=== PATIENT | female | born 1960 | race Caucasian/White ===

== ENCOUNTER → 2024-04-05 06:21 | Day surgery (SDC) | payer OTHER, SELFPAY | LOC: GI 06:21 | PROVIDERS: ATTENDING PHYSICIAN Internal Medicine Gastroenterology | DX: Z12.11 Encounter for screening for malignant neoplasm of colon (principal); K57.30 Diverticulosis of large intestine without perforation or abscess without bleeding; K64.8 Other hemorrhoids | CPT/HCPCS: G0121 ==

== ENCOUNTER 2024-08-31 14:55 | Emergency (ER) | payer OTHER, SELFPAY ==
[2024-08-31 15:16] VITALS: BP 161/99
[2024-08-31 15:38] LABS: % Basophils 0.1 % (0-2); % Eosinophils 3.6 % (0-6); % Immature Granulocytes 0.6 % (0-0.5); % Lymphocytes 16.1 % (20.5-51.1); % Monocytes 9.1 % (1.7-9.3); % Neutrophils 70.5 % (42.2-75.2); Absolute Eosinophils 0.3 10^3/uL (0-0.7); Absolute Lymphocytes 1.2 10^3/uL (1.2-3.4); Absolute Monocytes 0.7 10^3/uL (0.1-0.6); Absolute Neutrophils 5.1 10^3/uL (1.4-6.5); Hematocrit 37.6 % (37.0-47.0); Hemoglobin 12.7 g/dL (12.0-16.0); Mean Corp Hgb Conc. 33.8 g/dL (33.0-37.0); Mean Corpuscular Hgb 33.6 pg (27.0-31.0); Mean Corpuscular Volume 99.5 fL (81.0-99.0); Mean Platelet Volume 9.9 fL (7.4-10.4); Nucleated Red Blood Cells % 0 %; Platelet Count 283 10^3/uL (130-400); Red Blood Cell Count 3.78 10^6/uL (4.20-5.40); White Blood Cell Count 7.2 10^3/uL (4.8-10.8)
[2024-08-31 15:59] LABS: ALT (SGPT) 18 U/L (0-35); AST (SGOT) 28 U/L (14-36); Albumin 4.4 g/dl (3.5-5.0); Alkaline Phosphatase 68 U/L (38-126); Blood Urea Nitrogen 13 mg/dl (7-17); Calcium 9.3 mg/dl (8.4-10.2); Carbon Dioxide 25 mmol/L (22-30); Chloride 108 mmol/L (98-107); Glucose 106 mg/dl (70-99); Potassium 4.4 mmol/L (3.5-5.1); Sodium 140 mmol/L (135-145); Total Bilirubin 0.7 mg/dl (0.2-1.3); eGFR > 60.00
[2024-08-31 16:00] LABS: Lipase 210 U/L (23-300)
[2024-08-31 16:01] LABS: Urine Albumin Negative (Neg - Trace); Urine Bilirubin Negative (Negative); Urine Character Clear (Clear); Urine Color Yellow; Urine Glucose Negative (Negative); Urine Ketone 1+ (Negative); Urine Leukocyte 1+ (Negative); Urine Nitrite Negative (Negative); Urine Occult Blood 1+ (Negative); Urine Urobilinogen 1+ (Neg - 1+); Urine pH 6.5 (5.0-9.0)
[2024-08-31 16:09] LABS: Urine Squamous Cell >30 /LPF (Few)
[2024-08-31 16:10] LABS: Urine Bacteria Few (Negative)
--- NOTE | 2024-08-31 16:44 | ED.GENMED ---
History of Present Illness
General
Chief Complaint: Abdominal Pain
Source: patient
Exam Limitations: none
Time Seen by Provider: 08/31/24 16:30
History of Present Illness
History of Present Illness:
64yoF with a history of rheumatoid arthritis on Rinvoq and methotrexate and GERD presenting for evaluation of abdominal pain. She reports cramping pain in her LLQ with bloating for the past 3 days. Pain has been constant since it began and is
worse with movement and palpation. Pain is non-radiating. No prior history of similar pains in the past. She has also been constipated. She didn't have a bowel movement for 4 days up until this morning which is unusual for her. She was seen by
her PCP today and was sent to the ED for evaluation. She denies any fevers, chills, vomiting, dysuria, back pain, hematochezia. Previous abdominal surgeries include an appendectomy in her 20s. Colonoscopy in March 2024 showed 'Multiple
small-mouthed diverticula were found in the entire colon.'
Past History
Past History
ED Past Medical History: Other (Rheumatoid arthritis)
ED Past Surgical History: None and Other
Social History
Tobacco: Non-smoker
Alcohol: Occasional
Personal:
Living: with family
Employment: Other
Family History
Family History: Negative Diabetes, Hypertension, Early CAD, Asthma or Cancer
Phy Exam
General Physical Exam
General Presentation: well appearing and no apparent distress
General age: appears stated age
General Skin: warm and dry
General Habitus: normal
General Mental: alert
ENT Exam
ENT Exam: normocephalic
Cardiovascular Exam
Cardiovascular Exam: regular rate/rhythm and no murmur
Pulmonary Exam
Pulmonary Exam: lungs clear, no respiratory distress, no rales, no crackles, no rhonchi and no wheezing
Gastrointestinal Exam
Gastrointestinal Exam: soft, non distended and other (+Tenderness in the LLQ with voluntary guarding. No rebound. Abdomen soft, non-distended. )
Neurological Exam
Neurological Exam: alert
[place] Coma Scale
Eye Opening: Spontaneous
Verbal Response: Oriented
Motor Response: Obeys Commands
GCS Total Score: 15
Skin Exam
Skin Exam: normal color and warm/dry
Psychiatric Exam
Psychiatric Exam: normal mood/affect
Course
Orders/Labs/Results
Orders:
Orders
08/31/24 15:29
Complete Blood Count/With Diff Urgent
Comprehensive Metabolic Panel Urgent
Lipase Urgent
08/31/24 15:30
Urinalysis Reflex To Culture Urgent
Date Specimen was Collected: 08/31/24
Time Specimen was Collected: 15:19
Urine Microscopic Reflex Cult Urgent
Urine Culture Urgent
FELICIANO Source: U
Specimen Description:
Date Specimen was Collected: 08/31/24
Time Specimen was Collected: 15:19
08/31/24 16:42
CT Abd/pel W Iv And Oral Contr Urgent
Comment:
Reason For Exam: LLQ pain
0.9% Sodium Chloride 1000 ml [Nss] 1,000 ml IV BOLUS
Iohexol [Omnipaque] See Protocol PO NOW STA
08/31/24 20:55
Amoxicillin 875 mg/Clav 125 mg [Augmentin 875 mg/125 mg] 1 tablet PO NOW STA
Abnormal Lab Results
08/31/24 08/31/24
15:29 15:30
RBC 3.78 L 10^6/uL
(4.20-5.40)
MCV 99.5 H fL
(81.0-99.0)
MCH 33.6 H pg
(27.0-31.0)
Absolute Monos (auto) 0.7 H 10^3/uL
(0.1-0.6)
Immature Gran % 0.6 H %
(0-0.5)
Lymphocytes % 16.1 L %
(20.5-51.1)
Chloride 108 H mmol/L
(98-107)
Glucose 106 H mg/dl
(70-99)
Urine Ketones 1+ A
(Negative)
Ur Occult Blood Reflex 1+ A
(Negative)
Leukocyte Esterase Rfl 1+ A
(Negative)
Urine RBC 3-6 A /HPF
(0-2)
Urine Bacteria (Reflex) Few A
(Negative)
08/31/24 15:29
08/31/24 15:29
Vital Signs
Initial and Last Documented VS:
Initial Vital Signs
Temp Pulse Resp BP Pulse Ox
97.8 F 85 16 161/99 98
08/31/24 15:16 08/31/24 15:16 08/31/24 15:16 08/31/24 15:16 08/31/24 15:16
Last Documented Vital Signs
Temp Pulse Resp BP Pulse Ox
97.8 F 76 16 156/94 98
08/31/24 15:16 08/31/24 21:09 08/31/24 18:00 08/31/24 18:00 08/31/24 21:09
MDM/Problems Addressed
Differential Diagnosis Includes:
64yoF here with LLQ pain and bloating x 3 days. Associated with constipation. No f/c. Colonoscopy last year showed diverticulosis. She is hypertensive with otherwise normal vitals. She is well appearing in no distress. There is LLQ tenderness on
exam with voluntary guarding. Differential diagnosis includes but is not limited to: diverticulitis, intra-abdominal abscess, colitis, constipation, stercoral colitis, kidney stone
Initial ED plan: Labs obtained in triage. White count, renal function, LFTs normal. UA with 1+ blood without signs of infection. Will obtain CT abdomen with IV/PO contrast. IV fluid bolus. She declines analgesics.
*Critical Care Note
Total Time (30-74mins, 75-104mins- exclusive of procedures): Not Applicable
Update Note
Update Note:
Imaging shows evidence of acute uncomplicated diverticulitis. No evidence of perforation or abscess. Inflammatory malignancy cannot be entirely excluded and radiology is recommending repeat CT scan to confirm resolution of diverticulitis. Patient
did have a colonoscopy about 6 months ago which did not show any polyps or signs of malignancy. She was provided with a copy of her radiology report. Patient was started on a course of Augmentin. Advised clear liquid diet until pain improves.
She was instructed to follow-up with gastroenterology. Strict ED return precautions discussed including fevers, chills, and severe pain. Patient in agreement with plan and was discharged in stable condition.
ED Attending Note
-
Portions of this chart may have been created with voice recognition software.� Occasional wrong word or��sound alike� substitutions may have occurred due to the inherent limitations of voice recognition software.
Discharge Plan
Departure
Patient Disposition: Home (Routine Discharge)
Date of Disposition: 08/31/24
Time of Disposition: 20:55
Patient with high blood pressure during this ER visit?: Yes
Discharge Problem:
Acute diverticulitis
Instructions: Clear Liquid Diet, Diverticulitis - Discharge instructions
Prescriptions:
New
amoxicillin-pot clavulanate 875-125 mg tablet
1 tab PO BID Qty: 19 0RF
No Action
abatacept (with maltose) [Orencia (with maltose)] 250 MG/10 ML recon soln
250 mg IV MONTHLY
cyanocobalamin (vitamin B-12) 100 MCG tablet
100 mcg PO DAILY
ergocalciferol (vitamin D2) 400 UNIT tablet
800 unit PO DAILY
meloxicam 7.5 MG tablet
7.5 mg PO BID
methotrexate sodium 2.5 MG tablet
15 mg PO WEEKLY
folic acid 1 MG tablet
1 mg PO DAILY
Patient Comments:
Does not take it when methotrexate taken
oxycodone-acetaminophen 5 MG/325 MG tablet
1 tab PO Q4HPRN PRN (Reason: pain) Qty: 12 0RF
Referrals:
Telma Jean-Baptiste MD [Family Provider] -
Activity Restrictions/Additional Instructions:
Take antibiotics as prescribed. Eat a clear liquid diet until pain improves.
Please follow-up with gastroenterology to discuss need for repeat CT scan after infection resolves. You should also discuss with your issuing operator regarding your Rinvoq.
Return to the ER with any new or worsening symptoms including severe pain, fevers, chills.
Interventions
Interventions:
*Risk Screen - Suicide Last Done: 08/31/24 15:16
*General Assessment Last Done: 08/31/24 17:31
*Neglect/Abuse Screening Last Done: 08/31/24 15:16
*ED- Fall Risk Assessment Last Done: 08/31/24 17:31
*ED COVID-19 Vaccine History Last Done: 08/31/24 17:31
*Nursing Disposition Last Done: 08/31/24 21:09
NE-Pdhtqb-Qqypcznydn Assessment Last Done: 08/31/24 17:31
Discharge Date and Time
Discharge Date/Time: 08/31/24 21:10
Print Language: URUGUAYAN
[2024-08-31] MEDS: OMNIPAQUE 50 ML PO (17:14)
[2024-08-31] MEDS: NSS 1000 IV (17:15)
[2024-08-31 18:00] VITALS: BP 156/94
[2024-08-31] MEDS: AUGMENTIN 875 MG/125 MG 1 TABLET PO (21:04)
== END 2024-08-31 21:10 | disposition home or self-care (01) ==
LOC: EMR 14:55
PROVIDERS: EMERGENCY PHYSICIAN Emergency Medicine; FAMILY PHYSICIAN Family Medicine
DX: K57.30 Diverticulosis of large intestine without perforation or abscess without bleeding (principal); M06.9 Rheumatoid arthritis, unspecified; K21.9 Gastro-esophageal reflux disease without esophagitis; Z79.899 Other long term (current) drug therapy
CPT/HCPCS: 99284; 96360; 74177; 80053; 81003; 81015; 83690; 85025; 87086; Q9967

== ENCOUNTER 2024-09-04 14:49 | Inpatient (IN) | payer OTHER, SELFPAY ==
[2024-09-04] VITALS (13 sets, daily range): BP systolic 102–137; BP diastolic 66–89; BMI 26.9
--- NOTE | 2024-09-04 07:37 | ED.GENMED ---
History of Present Illness
General
Chief Complaint: Fainting/Passed Out
Source: patient, records and spouse
Exam Limitations: none
Time Seen by Provider: 09/04/24 07:11
Nursing documentation reviewed up to this point in time: agreed with
History of Present Illness
History of Present Illness:
64-year-old male presents emerged department after waking up with a fever of 100.5 today. She then took a shower and felt lightheaded, passed out and fell onto her face. She is currently on Augmentin for diverticulitis that was diagnosed on
08/31/2024. She is also having worse abdominal pain.
Past History
Past History
ED Past Medical History: Other (Rheumatoid arthritis) and Other (Diverticulitis)
ED Past Surgical History: None and Other
Social History
Tobacco: Non-smoker
Alcohol: Occasional
Personal:
Living: with family
Employment: Other
Family History
Family History: Negative Diabetes, Hypertension, Early CAD, Asthma or Cancer
Review of Systems
Review of Systems
Allergies reviewed?: Yes
All Other Systems: Not applicable
EENT: Reports no symptoms
Respiratory: Reports no symptoms
Cardiac: Reports syncope
ABD/GI: Reports abdominal pain, nausea and vomiting
: Reports no symptoms
Musculoskeletal: Reports no symptoms
Skin: Reports no symptoms
Neurological: Reports no symptoms
Endocrine: Reports no symptoms
Hematologic/Lymphatic: Reports no symptoms
Psychiatric: Reports no symptoms
Phy Exam
Physical Exam
Physical Exam:
Physical Exam
General: no apparent distress, not acutely ill
Neck: supple. no meningeal signs. normal posterior pharynx, tenderness palpation at C2-C3
Heart: s1/s2 regular rate and rhythm, no murmur. equal radial
pulses.
HEENT: Pupils equal round reactive to light, EOMI, anterior nasal laceration, nasal swelling
Lungs: no acute respiratory distress. clear bilaterally
Abdomen: normal bowel sounds. Left-sided tenderness, no rebound or guarding. no CVAT
Neuro: alert and oriented. no focal neurological deficits cranial nerves II through XII intact
Skin: no rash
Psychiatric: well kept. interactive and cooperative
Extremities: no edema. no calf tenderness. negative homans. good distal pulses
Course
Orders/Labs/Results
Orders:
Orders
09/04/24 07:04
ECG [Electrocardiogram (*1)] Urgent
Reason for Study: Syncope
EKG- Treatment ONCE
09/04/24 07:33
CT Cervical Spine W/o Iv Contr Urgent
Comment:
Reason For Exam: fall, pain at c2-4
CT Facial Bones W/o Iv Contras Urgent
Comment:
Reason For Exam: fall, hit nose and jaw
CT Head W/o Iv Contrast Urgent
Comment:
Reason For Exam: fall, hit head
Iohexol [Omnipaque] See Protocol PO NOW STA
09/04/24 07:35
Complete Blood Count/With Diff Urgent
Comprehensive Metabolic Panel Urgent
Lactic Acid Q4H
Comment: CANCEL 2nd LACTIC ACID IF 1st LACTIC ACID IS LESS THAN 2
Blood Culture Q30M
FELICIANO Source: Blood/Venous
Specimen Description:
09/04/24 07:36
CT Abd/pel W Iv And Oral Contr Urgent
Comment:
Reason For Exam: LLQ abd pain, worse, now febrile
09/04/24 07:46
Morphine Sulfate 4 mg IV NOW STA
Ondansetron Injectable [Zofran] 4 mg IV NOW STA
09/04/24 08:05
Blood Culture Q30M
FELICIANO Source: Blood/Venous
Specimen Description:
09/04/24 08:37
Acetaminophen [Tylenol] 1,000 mg .ROUTE .STK-MED ONE
09/04/24 08:38
Acetaminophen [Tylenol] 1,000 mg PO NOW STA
09/04/24 11:29
Piperacillin/Tazo 4.5 Gram [Zosyn] 4.5 gram in 100 ml IV NOW
Abnormal Lab Results
09/04/24
07:35
WBC 12.9 H 10^3/uL
(4.8-10.8)
MCH 33.6 H pg
(27.0-31.0)
Abs Immat Gran (auto) 0.1 H 10^3/uL
(0-0.05)
Absolute Neuts (auto) 10.3 H 10^3/uL
(1.4-6.5)
Absolute Lymphs (auto) 1.1 L 10^3/uL
(1.2-3.4)
Absolute Monos (auto) 1.2 H 10^3/uL
(0.1-0.6)
Immature Gran % 0.6 H %
(0-0.5)
Neutrophils % 80.2 H %
(42.2-75.2)
Lymphocytes % 8.5 L %
(20.5-51.1)
Monocytes % 9.6 H %
(1.7-9.3)
Glucose 143 H mg/dl
(70-99)
09/04/24 07:35
09/04/24 07:35
Vital Signs
Initial and Last Documented VS:
Initial Vital Signs
Temp Pulse Resp BP Pulse Ox
97.7 F 95 16 137/89 100
09/04/24 06:59 09/04/24 06:59 09/04/24 06:59 09/04/24 06:59 09/04/24 06:59
Last Documented Vital Signs
Temp Pulse Resp BP Pulse Ox
97.7 F 81 18 102/66 96
09/04/24 06:59 09/04/24 13:30 09/04/24 13:30 09/04/24 13:00 09/04/24 13:30
Procedures
Laceration Closure
Middle Nose:
Status of Wound: clean
Size of Wound in cm: 0.5
Description of Wound Edges: sharp
Preparation: cleaned with saline
Type of Closure: Dermabond-skin glue
MDM/Problems Addressed
Differential Diagnosis Includes:
Intracranial hemorrhage, cervical spine fracture, nasal fracture, perforated diverticulitis
MDM/Problems Addressed:
64-year-old female with diverticulitis, failing outpatient antibiotics. Nasal fracture, incidental tongue mass and nasal laceration. Laceration repaired. Admit to hospitalist. Patient will follow-up with ENT for fracture and tongue mass.
*Radiology
Radiology exam reviewed: radiology read reviewed (Abdomen pelvis CT diverticulitis, no perforation. CT head no acute findings CT cervical spine no cervical spine fracture, tongue mass, nasal bone fracture)
*Pulse Oximetry
Patient hypoxic: no
*EKG
Interpreted by ED Provider?: Yes
EKG Intrepretation Date: 09/04/24
EKG Intrepretation Time: 07:42
Interpretation: abnormal
Comparison EKG: changes noted
Heart Rate: 79
Rate: normal
Rhythm: sinus and PVC's
[place]: normal axis
Interval: normal interval
QRS Pattern: normal QRS
Ischemia: no ischemia
*Corporate Real Estate Manager Interpretation
Rate: normal
Interpretation: normal
Heart Rate: 80
Rhythm: sinus
*Critical Care Note
Total Time (30-74mins, 75-104mins- exclusive of procedures): Not Applicable
Data Reviewed
Review of Other/Old Records Reveals: Radiology Studies (No perforation on prior CT abdomen pelvis)
Source: records
Patient Management
Social determinants of health affecting care: Living situation and Strong social support
Discussion with other providers: Hospitalist
Escalation/DeEscalation of care consider admission/obs:
Admission indicated
ED Attending Note
-
Portions of this chart may have been created with voice recognition software.� Occasional wrong word or��sound alike� substitutions may have occurred due to the inherent limitations of voice recognition software.
Discharge Plan
Departure
Patient Disposition: Admit
Date of Disposition: 09/04/24
Time of Disposition: 11:34
Admit to: Telemetry
Presentation/result/management discussed w/ accepting MD/DO: Hospitalist
Patient with high blood pressure during this ER visit?: No
Condition: Fair
Discharge Problem:
Diverticulitis, Syncope, Fracture of nasal bone, Tongue mass, Laceration of nose
Prescriptions:
No Action
meloxicam 7.5 MG tablet
7.5 mg PO DAILYPRN PRN (Reason: MILD PAIN)
methotrexate sodium 2.5 MG tablet
15 mg PO FR
folic acid 1 MG tablet
4 mg PO SUMOTUWETHSA
amoxicillin-pot clavulanate 875-125 mg tablet
1 tab PO BID Qty: 19 0RF
cyanocobalamin (vitamin B-12) 1,000 mcg Tablet
1,000 mcg PO DAILY
cholecalciferol (vitamin D3) [Vitamin D3] 25 mcg (1,000 unit) Tablet
75 mcg PO DAILY
omeprazole 20 mg Tablet,Delayed Release (Dr/Ec)
20 mg PO DAILY
PreserVision AREDS 2,148 mcg-113 mg-45 mg-17.4mg Tablet
1 tab PO BID
Rinvoq 15 mg Tablet Extended Release 24 Hr
15 mg PO DAILY
Referrals:
Telma Jean-Baptiste MD [Family Provider] -
Interventions
Interventions:
*Risk Screen - Suicide Last Done: 09/04/24 06:59
*Neglect/Abuse Screening Last Done: 09/04/24 06:59
*ED- Fall Risk Assessment Last Done: 09/04/24 11:48
ED- Cardiac Assessment Last Done: 09/04/24 11:52
ED- Neurological Assessment Last Done: 09/04/24 11:52
Discharge Date and Time
Print Language: IRISH
[2024-09-04 07:50] LABS: % Basophils 0.2 % (0-2); % Eosinophils 0.9 % (0-6); % Immature Granulocytes 0.6 % (0-0.5); % Lymphocytes 8.5 % (20.5-51.1); % Monocytes 9.6 % (1.7-9.3); % Neutrophils 80.2 % (42.2-75.2); Absolute Eosinophils 0.1 10^3/uL (0-0.7); Absolute Immature Granulocytes 0.1 10^3/uL (0-0.05); Absolute Lymphocytes 1.1 10^3/uL (1.2-3.4); Absolute Monocytes 1.2 10^3/uL (0.1-0.6); Absolute Neutrophils 10.3 10^3/uL (1.4-6.5); Hematocrit 41.1 % (37.0-47.0); Hemoglobin 14.1 g/dL (12.0-16.0); Mean Corp Hgb Conc. 34.3 g/dL (33.0-37.0); Mean Corpuscular Hgb 33.6 pg (27.0-31.0); Mean Corpuscular Volume 97.9 fL (81.0-99.0); Mean Platelet Volume 9.4 fL (7.4-10.4); Nucleated Red Blood Cells % 0 %; Platelet Count 321 10^3/uL (130-400); Red Cell Dist. Width 13.3 % (11.5-14.5); White Blood Cell Count 12.9 10^3/uL (4.8-10.8)
[2024-09-04] MEDS: ZOFRAN 4 MG IV (08:02)
[2024-09-04 08:03] LABS: ALT (SGPT) 16 U/L (0-35); AST (SGOT) 18 U/L (14-36); Albumin 4.5 g/dl (3.5-5.0); Alkaline Phosphatase 69 U/L (38-126); Blood Urea Nitrogen 7 mg/dl (7-17); Calcium 9.6 mg/dl (8.4-10.2); Carbon Dioxide 23 mmol/L (22-30); Chloride 106 mmol/L (98-107); Glucose 143 mg/dl (70-99); Potassium 3.6 mmol/L (3.5-5.1); Sodium 142 mmol/L (135-145); Total Bilirubin 1.1 mg/dl (0.2-1.3); Total Protein 7.1 g/dl (6.3-8.2); eGFR > 60.00
[2024-09-04 08:11] LABS: Lactic Acid 1.7 mmol/L (0.7-2.0)
[2024-09-04] MEDS: OMNIPAQUE 50 ML PO (08:30)
[2024-09-04] MEDS: TYLENOL 1000 MG PO (08:38)
[2024-09-04] MEDS: ZOSYN 100 IV (11:39)
[2024-09-04] MEDS: TYLENOL 650 MG PO ×2 (14:25→20:25)
--- NOTE | 2024-09-04 15:09 | HPS.HSE ---
Family Physician
-
Family Physician: Telma Jean-Baptiste
Chief Complaint
-
Syncope, Diverticulitis
History of Present Illness
64-year-old female with seronegative RA (immunocompromise secondary to use of MTX and Rinvoq), diverticulosis, vitamin D deficiency, vitamin B12 deficiency, H/O parathyroidectomy, H/O retina tear that presented to the ED today after having a
syncopal episode. Patient states she woke up today with a fever of 100.5 �F. Went to take a shower when she became lightheaded, lost consciousness and fell onto her face. States she was recently diagnosed with diverticulitis as an outpatient on
08/31/24 and treated with a course of Augmentin. States abdomen pain has been worsening over that time. Upon arrival to the ED, AFVSS. Labs with WBC 12.9 and neutrophilic predominance but otherwise fairly unremarkable. CT A/P with IV and oral
contrast demonstrated acute sigmoid diverticulitis without significant change compared to CT on, no signs of abscesses or perforation. CT cervical spine without contrast showed asymmetry within the left oropharynx at the base of the tongue
concerning for mucosal mass. CT facial bones without IV contrast showed minimally displaced bilateral nasal bone fracture. Head CT did not show any signs of ICH or skull fractures. In the ED was started on IV Zosyn, Zofran, and Tylenol.
Medical History
Past Medical History
Past Medical History: Reports Other
Additional Past Medical History:
Seronegative RA
Immunosuppressed 2/2 Rinvoq and MTX
Diverticulosis
B12 deficiency
Vitamin D deficiency
Past Surgical History: Reports Other
Additional Past Surgical History:
H/O parathyroidectomy
H/O Retinal repair
Social History
Tobacco: Non-smoker
Alcohol: None
Drug: None
Family History
Family History: Not pertinent
Allergies / Home Medications
Allergies reflects when Allergies were last updated in [facility].
Home Medications with original date entered in [facility]
Allergy/Medication List:
Allergies
Allergy/AdvReac Type Severity Reaction Status Date / Time
cefcil Allergy Hives Uncoded 09/04/24 07:02
Home Medications
folic acid 1 mg tablet 4 mg PO SUMOTUWETHSA 04/09/15
meloxicam 7.5 mg tablet 7.5 mg PO DAILYPRN PRN MILD PAIN 04/09/15
methotrexate sodium 2.5 mg tablet 15 mg PO FR 04/09/15
amoxicillin 875 mg-potassium clavulanate 125 mg tablet 1 tab PO BID #19 tabs 08/31/24
cholecalciferol (vitamin D3) 25 mcg (1,000 unit) tablet (Vitamin D3) 75 mcg PO DAILY 09/04/24
cyanocobalamin (vitamin B-12) 1,000 mcg tablet 1,000 mcg PO DAILY 09/04/24
omeprazole 20 mg tablet,delayed release 20 mg PO DAILY 09/04/24
upadacitinib 15 mg tablet,extended release 24 hr (Rinvoq) 15 mg PO DAILY 09/04/24
vitamins A,C,Z-kryz-kgxynr 2,148 mcg-113 mg-45 mg-17.4 mg tablet (PreserVision AREDS) 1 tab PO BID 09/04/24
Review of Systems
-
A 12 point ROS was completed and negative except as noted: Yes
Constitutional: Reports No Symptoms
EENT: Reports No Symptoms
Respiratory: Reports No Symptoms
Cardiac: Reports See HPI
Abdomen/GI: Reports See HPI
: Reports No Symptoms
Musculoskeletal: Reports No Symptoms
Skin: Reports No Symptoms
Neurological: Reports No Symptoms
Endocrine: Reports No Symptoms
Hematologic/Lymphatic: Reports No Symptoms
Psych: Reports No Symptoms
Physical Exam
Vital Signs
Vital Signs
Temp Pulse Resp BP Pulse Ox
97.7 F 78 15 120/79 97
09/04/24 06:59 09/04/24 14:45 09/04/24 14:45 09/04/24 14:00 09/04/24 14:45
Physical Exam
General: Well Developed, Well Nourished, No Apparent Distress and Comfortable
HEENT: NormoCephalic, Anicteric, Moist mucous membranes, Atraumatic and PERRLA
Respiratory: Clear and Non Labored Respirations; No Accessory Resp Muscle Use
Cardiac: S1/S2 and Regular Rhythm; No Murmur, Rub, Gallop or Peripheral Edema
GI: Soft, Non Distended, Normal Bowel Sounds and Tender
Musculoskeletal: No Clubbing and No Cyanosis
Skin: Warm and Dry; No Rash or Jaundice
Neuro: AO x 3, Nonfocal/grossly intact and Cranial Nerves Intact; No Tremors
Psych: Calm
Laboratory Results
-
09/04/24 07:35
09/04/24 07:35
Laboratory Results
Lactic Acid Cancelled 09/04/24 11:45
Total Bilirubin 1.1 mg/dl (0.2-1.3) 09/04/24 07:35
AST 18 U/L (14-36) 09/04/24 07:35
ALT 16 U/L (0-35) 09/04/24 07:35
Alkaline Phosphatase 69 U/L (38-126) 09/04/24 07:35
Data Reviewed
-
CT Scan: Report Reviewed by me, Discussed with Patient and Discussed with Family
Lab Data: Labs Reviewed by me and Discussed with Physician (ED attending)
Impression/Plan
-
#Syncope
#Fractured nasal bone with minimal displacement
-Differentials include hypotension v. orthostasis v. vasovagal; less likely cardiogenic or neurogenic etiology
-Currently being treated for diverticulitis with antibiotics, had syncope when using the shower
-Not currently on any antihypertensive medications, vital signs stable on arrival
-Will check daily orthostatic vital signs and provide IVF maintenance
-Monitor on telemetry for underlying arrhythmias, consider TTE
-Monitor clinically for neurologic symptoms
-Supportive care for nondisplaced fracture
#Acute diverticulitis
#Failed OP antibiotics
-Failed outpatient antibiotics with Augmentin; diagnosed 08/[address] scan
-CT scan on arrival here shows no significant change from scan on 08/31
-Presented with white cell count 12.9, compared to 7.2 on 08/31
-CT scan was without signs of perforation or underlying abscesses
-Blood culture x 2 obtained in ED; started on IV Zosyn
-Continue with IV Zosyn; hold MTX and Rinvoq for now
-trend CBC and temperature curve, follow cultures
#Suspected posterior tongue mass
-CT trauma series showed incidental finding of asymmetry within the left oropharynx at the base of the
-No mass directly visualized though findings are suspicious for mass lesion in the region
-No signs of airway compromise or increased risks for aspiration
-Will likely need OP v. IP ENT for laryngoscopy
#Seronegative RA
#Immunosuppressed status
-Home regimen includes Rinvoq daily and methotrexate every Wednesday
-Currently takes vitamin B12 and folate supplements due to chronic methotrexate
-No known associations with ILD or CAD
-Previous serology negative
-No signs of flare at this time
-Holding immunosuppressants for now as above
#Vitamin B12 deficiency
#Vitamin D deficiency
-Continue vitamin D and B12 supplements
-Continue folate supplement
#H/O parathyroidectomy
DVT prophylaxis: SQH
Diet: CLD
CODE STATUS: Full code
--- NOTE | 2024-09-04 15:52 | CM ---
CM met with pt bedside
Pt resides with her spouse in a 2[address] with 1 [address], full flight to 2nd floor
Pt is indep with her ADLs, denies use of DMEs, drives+
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
Pt has hx with outpt therapy due to RA
PCP- Telma Jean-Baptiste
Rx- [facility]
Discharge Disposition- anticipate home no needs
[2024-09-04] MEDS: OCUVITE SOFTGEL 1 CAP PO (20:10)
[2024-09-04] MEDS: ZOSYN 50 IV (20:10)
[2024-09-04] MEDS: HEPARIN 5000 UNITS SC (20:10)
[2024-09-04] MEDS: HEPARIN SC (23:45)
[2024-09-05] VITALS (7 sets, daily range): BP systolic 112–137; BP diastolic 78–86; PULSE 79–110
[2024-09-05] MEDS: ZOSYN 50 IV ×4 (02:00→19:38)
[2024-09-05] MEDS: TYLENOL 650 MG PO ×4 (02:54→19:38)
[2024-09-05] MEDS: VITAMIN B-12 1000 MCG PO (08:46)
[2024-09-05] MEDS: OCUVITE SOFTGEL 1 CAP PO ×2 (08:46→19:38)
[2024-09-05] MEDS: PROTONIX 40 MG PO (08:46)
[2024-09-05] MEDS: VITAMIN D3 (cholecalciferol) 75 MCG PO (08:46)
[2024-09-05] MEDS: HEPARIN 5000 UNITS SC ×3 (08:47→23:06)
[2024-09-05] MEDS: FOLVITE 4 MG PO (08:51)
[2024-09-05 09:04] LABS: Blood Urea Nitrogen 9 mg/dl (7-17); Calcium 9.3 mg/dl (8.4-10.2); Carbon Dioxide 24 mmol/L (22-30); Chloride 104 mmol/L (98-107); Estimated Creatinine Clearance 55 ml/min; Glucose 88 mg/dl (70-99); Magnesium 2.1 mg/dl (1.6-2.3); Potassium 3.8 mmol/L (3.5-5.1); Sodium 141 mmol/L (135-145); eGFR > 60.00
[2024-09-05 09:45] LABS: % Basophils 0.4 % (0-2); % Eosinophils 2.8 % (0-6); % Immature Granulocytes 0.5 % (0-0.5); % Lymphocytes 14.1 % (20.5-51.1); % Monocytes 9.4 % (1.7-9.3); % Neutrophils 72.8 % (42.2-75.2); Absolute Eosinophils 0.2 10^3/uL (0-0.7); Absolute Lymphocytes 1.1 10^3/uL (1.2-3.4); Absolute Monocytes 0.7 10^3/uL (0.1-0.6); Absolute Neutrophils 5.5 10^3/uL (1.4-6.5); Hematocrit 38.6 % (37.0-47.0); Hemoglobin 13.3 g/dL (12.0-16.0); Mean Corp Hgb Conc. 34.5 g/dL (33.0-37.0); Mean Corpuscular Hgb 33.4 pg (27.0-31.0); Mean Platelet Volume 9.6 fL (7.4-10.4); Nucleated Red Blood Cells % 0 %; Platelet Count 345 10^3/uL (130-400); Red Blood Cell Count 3.98 10^6/uL (4.20-5.40); Red Cell Dist. Width 13.2 % (11.5-14.5); White Blood Cell Count 7.5 10^3/uL (4.8-10.8)
--- NOTE | 2024-09-05 11:26 | W.PN.HOSP.TC ---
Today's Communication/Plan
-
Continue IV Zosyn and follow cultures
Continue CLD for today
Monitor on telemetry
Possible transition to oral regimen tomorrow
Assessment / Plan
Assessment / Plan
#Syncope
#Fractured nasal bone with minimal displacement
-Differentials include hypotension v. vasovagal; orthostats negative; less likely cardiogenic or neurogenic etiology
-Currently being treated for diverticulitis with antibiotics, had syncope when using the shower
-Not currently on any antihypertensive medications, vital signs stable on arrival
-Will check daily orthostatic vital signs and provide IVF maintenance
-Monitor on telemetry for underlying arrhythmias, consider TTE
-Monitor clinically for neurologic symptoms
-Supportive care for nondisplaced fracture
#Acute diverticulitis
#Failed OP antibiotics
-Failed outpatient antibiotics with Augmentin; CT scan on arrival here shows no significant change from scan on 08/31
-Presented with white cell count 12.9, compared to 7.2 on 08/31; repeat CT without signs of perforation or abscesses
-Blood culture x 2 obtained in ED; started on IV Zosyn; methotrexate and Rinvoq held
-Continue with IV antibiotics for today, consider transition to ciprofloxacin and Flagyl on
-trend CBC and temperature curve, follow cultures
-Plan to advance diet morning of 09/06
#Suspected posterior tongue mass
-CT trauma series showed incidental finding of asymmetry within the left oropharynx at the base of the
-No mass directly visualized though findings are suspicious for mass lesion in the region
-No signs of airway compromise or increased risks for aspiration
-Will likely need GI follow up and OP ENT for laryngoscopy
#Seronegative RA
#Immunosuppressed status
-Home regimen includes Rinvoq daily and methotrexate every Wednesday
-Currently takes vitamin B12 and folate supplements due to chronic methotrexate
-No known associations with ILD or CAD
-Previous serology negative
-No signs of flare at this time
-Holding immunosuppressants for now as above
#H/O Schatzki's ring
#GERD
-States that she previously had Schatzki's ring that required endoscopic dilation
-Uncertain if findings from CT C-spine are related to previous Schatzki ring
-Home regimen includes pantoprazole 20 mg daily
-Encouraged OP GI follow-up at discharge
#Vitamin B12 deficiency
#Vitamin D deficiency
-Continue vitamin D and B12 supplements
-Continue folate supplement
#H/O parathyroidectomy
DVT prophylaxis: SQH
Diet: CLD
CODE STATUS: Full code
Anticipated Discharge: 24 - 48 hours
Subjective/Interval History
-
Date of Service: September 05, 2024
Seen and examined at the bedside. No acute events reported overnight. AFVSS this morning
States that her abdomen pain is improved. Leukocytosis has resolved. Mentions some chronic issues with swallowing which she associates with previous Schatzki ring
Denies any new complaints as of this morning
Objective Data
-
Labs:
Laboratory Results
09/05/24 09/05/24
06:39 08:57
WBC 7.5
Hgb 13.3
Hct 38.6
Plt Count 345
Sodium 141
Potassium 3.8
Chloride 104
Carbon Dioxide 24
BUN 9
Creatinine 0.9
Glucose 88
Calcium 9.3
Vital Signs:
Vital Signs
Temp Pulse Resp BP Pulse Ox
98.3 F 78 18 124/81 97
09/05/24 11:21 09/05/24 11:21 09/05/24 11:21 09/05/24 11:21 09/05/24 11:21
I&O
09/04/24 09/05/24 09/06/24
06:59 06:59 06:59
Intake Total 480 / 480
Balance 480 / 480
Review of Systems
-
History Source: Patient
All other systems: Reviewed and negative
Physical Exam
-
General: Well Developed, Well Nourished, No Apparent Distress and Comfortable
HEENT: Normocephalic, Moist Mucous Membranes, Anicteric and Other (Nasal laceration); Negative Pharyngeal Erythema or Neck Masses
Respiratory: Clear to Auscultation and Non Labored Respirations
Cardiac: Regular Rhythm and S1/S2; Negative Murmur, Rub or Gallop
GI: Soft, Nondistended, Normal Bowel Sounds and Tender (Minimally, LLQ)
Musculoskeletal: No Clubbing, No Cyanosis and No Edema
Skin: Warm, Dry and Normal Turgor; Negative Rash
Neuro: AO x 3 and Nonfocal/Grossly Intact
Psych: Calm
Data Reviewed
-
Labs: Labs Reviewed by me and Discussed with Patient
--- NOTE | 2024-09-05 13:01 | PTCARENOTE ---
Patient ambulating to bathroom with a steady gait. Patient has no c/o dizziness. Tylenol given at 0845 for facial pain and headache with some relief. Ice pack for face/nose as needed. Patient tolerated clear liquid diet. Patient has tenderness in
low quadrants, denies pain.
--- NOTE | 2024-09-05 14:11 | CM ---
Chart reviewed; met with pt
CM will continue to follow for d/c needs
Plan - anticipate home no needs
[2024-09-06] MEDS: ZOSYN 50 IV ×3 (03:00→13:53)
[2024-09-06] MEDS: TYLENOL 650 MG PO ×2 (03:06→08:12)
[2024-09-06 03:54] VITALS: BP 132/73
[2024-09-06] MEDS: HEPARIN 5000 UNITS SC (08:04)
[2024-09-06] MEDS: FOLVITE 4 MG PO (08:04)
[2024-09-06] MEDS: FLUSH (NSS) 1 FLUSH IV ×2 (08:05→13:53)
[2024-09-06] MEDS: VITAMIN D3 (cholecalciferol) 75 MCG PO (08:05)
[2024-09-06] MEDS: VITAMIN B-12 1000 MCG PO (08:05)
[2024-09-06] MEDS: OCUVITE SOFTGEL 1 CAP PO (08:05)
[2024-09-06] MEDS: PROTONIX 40 MG PO (08:05)
[2024-09-06 08:15] VITALS: BP 137/84
[2024-09-06 11:21] VITALS: BP 138/95; BP 141/92; BP 143/95; PULSE 72; PULSE 75; PULSE 89
--- NOTE | 2024-09-06 11:40 | W.PN.HOSP.TC ---
Today's Communication/Plan
-
Continue IV Zosyn for now
Advance diet as tolerated
Possible DC later on oral regimen to complete 7 days
Assessment / Plan
Assessment / Plan
#Syncope
#Fractured nasal bone with minimal displacement
-Differentials include hypotension v. vasovagal; orthostats negative; less likely cardiogenic or neurogenic etiology
-Currently being treated for diverticulitis with antibiotics, had syncope when using the shower
-Not currently on any antihypertensive medications, vital signs stable on arrival
-Will check daily orthostatic vital signs and provide IVF maintenance
-Monitor on telemetry for underlying arrhythmias, consider TTE
-Monitor clinically for neurologic symptoms
-Supportive care for nondisplaced fracture
-May benefit from outpatient MCOT
#Acute diverticulitis
#Failed OP antibiotics
-Failed outpatient antibiotics with Augmentin; CT scan on arrival here shows no significant change from scan on 08/31
-Presented with white cell count 12.9, compared to 7.2 on 08/31; repeat CT without signs of perforation or abscesses
-Blood culture x 2 obtained in ED; started on IV Zosyn; methotrexate and Rinvoq held
-Continue with IV antibiotics for today, consider transition to ciprofloxacin and Flagyl to complete 7 day course
-trend CBC and temperature curve, follow cultures
-ADAT
#Suspected posterior tongue mass
-CT trauma series showed incidental finding of asymmetry within the left oropharynx at the base of the
-No mass directly visualized though findings are suspicious for mass lesion in the region
-No signs of airway compromise or increased risks for aspiration
-Will likely need GI follow up and OP ENT for laryngoscopy
#Seronegative RA
#Immunosuppressed status
-Home regimen includes Rinvoq daily and methotrexate every Wednesday
-Currently takes vitamin B12 and folate supplements due to chronic methotrexate
-No known associations with ILD or CAD
-Previous serology negative
-No signs of flare at this time
-Holding immunosuppressants for now as above
#H/O Schatzki's ring
#GERD
-States that she previously had Schatzki's ring that required endoscopic dilation
-Uncertain if findings from CT C-spine are related to previous Schatzki ring
-Home regimen includes pantoprazole 20 mg daily
-Encouraged OP GI follow-up at discharge
#Vitamin B12 deficiency
#Vitamin D deficiency
-Continue vitamin D and B12 supplements
-Continue folate supplement
#H/O parathyroidectomy
DVT prophylaxis: SQH
Diet: CLD
CODE STATUS: Full code
Anticipated Discharge: Within 24 hours
Subjective/Interval History
-
Date of Service: September 06, 2024
Seen and examined at the bedside. No acute events reported overnight. AFVSS this morning
Patient states abdomen pain is practically resolved. Still has loose stools on clear liquid diet. No fevers overnight
She denies any new complaints. States she would like to go home if possible
Objective Data
-
Vital Signs:
Vital Signs
Temp Pulse Resp BP Pulse Ox
98.2 F 69 18 137/84 98
09/06/24 11:22 09/06/24 08:15 09/06/24 11:22 09/06/24 08:15 09/06/24 11:22
I&O
09/05/24 09/06/24 09/07/24
06:59 06:59 06:59
Intake Total 480 / 480 1640 / 1640
Balance 480 / 480 1640 / 1640
Review of Systems
-
History Source: Patient
All other systems: Reviewed and negative
Physical Exam
-
General: Well Developed, Well Nourished, No Apparent Distress and Comfortable
HEENT: Normocephalic, Moist Mucous Membranes, Anicteric and Other (Laceration and bruising on nasal bridge)
Respiratory: Clear to Auscultation and Non Labored Respirations
Cardiac: Regular Rhythm and S1/S2; Negative Murmur, Rub or Gallop
GI: Soft, Nontender, Nondistended and Normal Bowel Sounds
Musculoskeletal: No Clubbing, No Cyanosis and No Edema
Skin: Warm, Dry and Normal Turgor; Negative Rash
Neuro: AO x 3 and Nonfocal/Grossly Intact
Psych: Calm
Data Reviewed
-
Labs: Labs Reviewed by me and Discussed with Patient
--- NOTE | 2024-09-06 13:21 | CM ---
MD entered order for discharge.
Spoke with pt she said she was ready for discharge.
Offered VN she declined need.
She will need to tolerate diet prior to discharge.
Her Christopher will drive her home.
PLAN Home no needs
--- NOTE | 2024-09-06 14:24 | W.DCSUMMARY ---
Discharge Summary
Discharge Data
Date of Admission: 09/04/24
Date of Discharge: 09/06/24
Total time spent discharging patient (in min): 36
-
Pending Results: No
Hospital Course
Discharging Physician :�Clinton Stephens DO
Disposition :���� Home
Principal Discharge diagnosis :�
Syncope�vasovagal versus hypotension
Acute diverticulitis
Failure of OP antibiotic
Possible posterior tongue mass on imaging
Immunosuppressed status
Nondisplaced fractures of nasal bones
Chronic Discharge diagnosis :�
Seronegative rheumatoid arthritis on MTX + Rinvoq
Vitamin B12 deficiency
Vitamin D deficiency
H/O parathyroidectomy
H/O Schatzki ring s/p endoscopic dilation
Hospital Course :�
64-year-old female that presented to the hospital with syncope that occurred while using the shower. Patient denied prodromal symptoms, was using shower when she became lightheaded and fell forward onto her face. Patient was undergoing outpatient
antibiotic therapy (Augmentin) for acute diverticulitis that was diagnosed in the emergency department on 08/31/2024. Had initial trauma scan consisting of CT head without contrast, CT C-spine without contrast, and CT facial bones that did not show
any evidence of acute ICH or other neurologic findings. They did demonstrate nondisplaced nasal bone fractures. CT C-spine also mentioned asymmetry in the left oropharynx at the base of the tongue with suggestion for direct visualization to
exclude mucosal lesion. Patient was admitted to telemetry and transition to IV Zosyn. Home immunosuppressive regimen was held. Repeat CT A/P showed no significant changes from CT scan at time of diagnosis. Leukocytosis higher upon return to the
ED. Was started on clear liquid diet and had clinical improvement on IV Zosyn. White cell count normalized, patient remained afebrile and abdominal pain resolved. On her diet was escalated and she tolerated well. Transition antibiotics
to oral ciprofloxacin 750 mg every 12 hours and metronidazole 500 mg 4 times daily to complete 7 days of antibiotics (last day 09/10/2024). Advised that patient follows up with PCP within 1 to 2 weeks for consideration of repeat colonoscopy (had one
recently that was reportedly normal outside of diverticuli). Recommend possible repeat EGD and ENT referral for possible laryngoscopy to assess asymmetry of the tongue base seen on CT scan. Advised patient to resume her methotrexate on 09/15/2024
and to resume her Rinvoq on the day after completion of her antibiotic regimen.
Consultants : N/A
Important imaging findings :�
CT A/P with IV and oral contrast (08/31/24) -- LAST PULLER
IMPRESSION: Diverticulosis of the descending and sigmoid colon. Short segment marked thickening of the wall at the junction of the distal descending and sigmoid colon with some mild stranding most likely representing uncomplicated ACUTE
DIVERTICULITIS. In light of the prominent focal wall thickening, inflammatory malignancy cannot be entirely excluded. Recommend follow-up CT with intravenous and oral contrast to confirm resolution of presumed diverticulitis. Findings discussed by
telephone with Grace Banda PA-C at 2030 hours on August 31, 2024. Small simple hepatic cysts as well as additional subcentimeter low-attenuation hepatic lesions too small to characterize.
CT A/P with IV and oral contrast (09/04/24)
IMPRESSION:
1. Findings consistent with acute sigmoid diverticulitis, without significant change compared to recent prior CT dated 08/31/2024.
2. No associated abscess formation, and no extraluminal air is appreciated.
CT C-spine without IV contrast (09/04/24)
FINDINGS:No vertebral body fracture or significant spondylolisthesis is seen. No abnormal prevertebral soft tissue swelling. The facet joints and posterior elements are normally aligned. Grade 1 anterolisthesis of C4 on C5, likely degenerative.
There is asymmetry in the left oropharynx at the base of the tongue, best seen on sagittal images 50-55. The thyroid gland is within normal limits. No pathologic cervical lymphadenopathy.
The lung apices are normally aerated.
IMPRESSION:
1. No osseous injury appreciated.
2. Mild degenerative change as detailed above.
3. Asymmetry within the left oropharynx at the base of the tongue. Direct visualization is suggested to exclude mucosal lesion.
Procedure findings :� N/A
Follow-up :
Follow-up with family doctor within 1 to 2 weeks of discharge for consideration of MCOT and TTE
Follow-up with gastroenterology for consideration of repeat EGD
Follow-up with ENT referral for consideration of outpatient laryngoscopy
Follow-up with academic services professional as previously scheduled
Stop methotrexate until 09/15/2024
Stop Rinvoq until antibiotics completed
Ciprofloxacin 750 mg every 12 hours, Flagyl 500 mg 4 times daily through end of 09/10/2024
Discharge Plan
-
Patient Disposition: Home (Routine Discharge)
Discharge Diagnosis/Procedures: Acute diverticulitis
Syncopal episode (likely vasovagal versus hypotension)
Incidental finding of asymmetry of the tongue on CT (cannot rule out mass lesion)
Seronegative RA on Rinvoq and MTX
Immunosuppressed status
Condition: Fair
Diet: Low Residue
Activity: As tolerated
Driving Restrictions: No driving for 24 hours
Bathing Restrictions: None
Blood Work: Follow-up with your PCP for repeat BMP and CBC
Others Tests: Follow-up with gastroenterology for possible repeat EGD
Follow-up with ENT referral for possible laryngoscopy
Activity Restrictions/Additional Instructions:
After discharge you should follow-up with your family doctor, should be seen in office within 1 to 2-weeks of being discharged
Follow-up with your machine folder within 2 to 3 weeks of discharge (referral provided for GI if new provider is needed)
Contact ENT referrals office to schedule appointment
Follow-up with your academic services professional after discharge
Instructions: Diverticulitis
Referrals:
Kolby Sims MD [Active] - in two to three weeks
Telma Jean-Baptiste MD [Family Provider] -
Additional Discharge Medication Instructions: Continue ciprofloxacin 750 mg every 12 hours and metronidazole 500 mg 4 times daily for 4 more days after being discharged (last day of antibiotics 09/10/24)
Prescriptions:
New
metronidazole 500 mg tablet
500 mg PO QID 4 Days Qty: 16 0RF
ciprofloxacin HCl 750 mg tablet
750 mg PO Q12H 4 Days Qty: 8 0RF
Continued
meloxicam 7.5 MG tablet
7.5 mg PO DAILYPRN PRN (Reason: MILD PAIN)
folic acid 1 MG tablet
4 mg PO SUMOTUWETHSA
cyanocobalamin (vitamin B-12) 1,000 mcg Tablet
1,000 mcg PO DAILY
cholecalciferol (vitamin D3) [Vitamin D3] 25 mcg (1,000 unit) Tablet
75 mcg PO DAILY
omeprazole 20 mg Tablet,Delayed Release (Dr/Ec)
20 mg PO DAILY
PreserVision AREDS 2,148 mcg-113 mg-45 mg-17.4mg Tablet
1 tab PO BID
Held
methotrexate sodium 2.5 MG tablet
15 mg PO FR
Hold Instructions: Hold until Wednesday after antibiotic regimen is complete (09/15)
Rinvoq 15 mg Tablet Extended Release 24 Hr
15 mg PO DAILY
Hold Instructions: Until you finish course of antibiotics
Discontinued
amoxicillin-pot clavulanate 875-125 mg tablet
1 tab PO BID Qty: 19 0RF
Discharge Orders:
Discharge Patient (As Directed); Ordered 09/06/24
Ordered By: Clinton Stephens
Discharge Date and Time
Print Language: GERMAN
== END 2024-09-06 15:29 | disposition home or self-care (01) | DRG 392 ==
LOC: 4 EAST ACU 14:49
PROVIDERS: ADMITTING PHYSICIAN Internal Medicine; EMERGENCY PHYSICIAN Emergency Medicine; FAMILY PHYSICIAN Family Medicine
DX: K57.32 Diverticulitis of large intestine without perforation or abscess without bleeding (principal); D84.821 Immunodeficiency due to drugs; R55 Syncope and collapse; S02.2XXA Fracture of nasal bones, initial encounter for closed fracture; M06.00 Rheumatoid arthritis without rheumatoid factor, unspecified site; Z79.622 Long term (current) use of Janus kinase inhibitor; K14.9 Disease of tongue, unspecified; E53.8 Deficiency of other specified B group vitamins; E55.9 Vitamin D deficiency, unspecified; K22.2 Esophageal obstruction; K21.9 Gastro-esophageal reflux disease without esophagitis; W19.XXXA Unspecified fall, initial encounter; I49.3 Ventricular premature depolarization; K76.89 Other specified diseases of liver; M43.12 Spondylolisthesis, cervical region; S01.21XA Laceration without foreign body of nose, initial encounter
CPT/HCPCS: 12011; 70450; 70486; 72125; 74177; 80048; 80053; 83605; 83735; 85025; 87040; 93005; 96374; 96375; 99285; Q9967

== ENCOUNTER → 2024-09-08 07:07 | Outpatient (REF) | payer OTHER, SELFPAY | LOC: WDC 07:07 | PROVIDERS: ATTENDING PHYSICIAN Obstetrics & Gynecology Gynecology; FAMILY PHYSICIAN Family Medicine | DX: Z12.31 Encounter for screening mammogram for malignant neoplasm of breast (principal) | CPT/HCPCS: 77063; 77067 ==

== ENCOUNTER → 2025-04-04 16:22 | Outpatient (REF) | payer MEDICARE, OTHER, SELFPAY | LOC: RAD 16:22 | PROVIDERS: ATTENDING PHYSICIAN Internal Medicine Rheumatology; FAMILY PHYSICIAN Family Medicine | DX: M06.9 Rheumatoid arthritis, unspecified (principal) | CPT/HCPCS: 73130 ==

== ENCOUNTER → 2025-04-06 08:23 | Outpatient (REF) | payer MEDICARE, OTHER, SELFPAY | LOC: RAD 08:23 | PROVIDERS: ATTENDING PHYSICIAN Physician Assistant; FAMILY PHYSICIAN Family Medicine | DX: Z13.820 Encounter for screening for osteoporosis (principal); Z78.0 Asymptomatic menopausal state | CPT/HCPCS: 77080 ==